=== PATIENT | male | born 1935 ===

== ENCOUNTER 2023-03-06 10:48 | Outpatient (CLI) | payer OTHER | END 2023-03-06 11:01 | disposition home or self-care (01) | LOC: RAD 10:48 | PROVIDERS: ATTEND Orthopaedic Surgery | DX: M53.3 Sacrococcygeal disorders, not elsewhere classified (principal) ==

== ENCOUNTER 2023-03-12 06:33 | Outpatient (CLI) | payer OTHER | END 2023-03-12 06:34 | disposition home or self-care (01) | LOC: LAB 06:33 | PROVIDERS: ATTEND Orthopaedic Surgery | DX: E55.9 Vitamin D deficiency, unspecified (principal); E21.3 Hyperparathyroidism, unspecified; M81.8 Other osteoporosis without current pathological fracture ==